=== PATIENT | female | born 1970 | race Caucasian/White ===

== ENCOUNTER 2016-05-25 09:40 | Day surgery (SDC) | payer OTHER ==
[2016-05-22 14:36] VITALS: BMI 30.2
[2016-05-25] MEDS ORDERED: LEVOFLOXACIN 500 MG IVPB 100 ML IVPB ONE (11:40)
[2016-05-25] MEDS ORDERED: KETOROLAC TROMETHAMINE 30 MG/1 ML VIAL ONE (11:59)
[2016-05-25] MEDS ORDERED: DEXAMETHASONE SOD PHOSPHATE 4 MG/1 ML VIAL ONE (11:59)
[2016-05-25] MEDS ORDERED: LEVOFLOXACIN 500 MG PREMIX BAG IVPB ONE (12:00)
[2016-05-25] MEDS ORDERED: MIDAZOLAM HCL 2 MG/2 ML SINGLE DOSE VIAL ONE ×2 (12:01)
[2016-05-25] MEDS ORDERED: ePHEDrine SULFATE 50 MG/1 ML AMPULE ONE (12:20)
--- NOTE | 2016-05-25 12:39 | OP ---
Operative Note - Note: Operative Date: 05/25/16 Pre-Operative Diagnosis: right renal stone Operation: right eswl Findings: 10 mm right upper pole stone Post-Operative Diagnosis: Same as Pre-op Surgeon: Magdiel Carson Anesthesia: General Operative Report Dictated: Yes
[2016-05-25] MEDS ORDERED: PROMETHAZINE HCL 25 MG/1 ML VIAL IVPUSH PRN (12:41)
[2016-05-25] MEDS ORDERED: oxyCODONE HCL 5 MG TABLET PO PRN (12:41)
[2016-05-25] MEDS ORDERED: ONDANSETRON 4 MG/2 ML VIAL IVPUSH PRN (12:41)
--- NOTE | 2016-05-25 13:48 | OP ---
DATE OF OPERATION: 05/25/2016 PREOPERATIVE DIAGNOSIS: Right renal stone. POSTOPERATIVE DIAGNOSIS: Right renal stone. PROCEDURE: Right extracorporeal shock-wave lithotripsy. ATTENDING: Jemma Mcfarland MD ANESTHESIA: General. OPERATION: The patient was brought in the operating room, placed in a supine position on the operating room table. Ultrasonography and fluoroscopy were performed. A 10-mm right upper pole stone was identified. This stone was seen on both fluoroscopy and ultrasonography. At this point general anesthesia was administered. Levaquin 500 mg was also given intravenously. Extracorporeal shock-wave lithotripsy was then performed, 3000 impulses at 18 joules of power was administered to the stone. No complications were noted. The patient tolerated the procedure very well. The disposition of the patient was to the recovery room. JEMMA MCFARLAND M.D. [id number]
[2016-05-25] MEDS ORDERED: ACETAMINOPHEN 325 MG TABLET (FP) ONE (14:05)
[2016-05-25 14:46] VITALS: TEMP 97.8
[2016-05-25 15:26] VITALS: BP 122/78; PULSE 78
== END 2016-05-25 15:27 | disposition home or self-care (01) ==
LOC: JASU-SURG 09:40
PROVIDERS: ATTEND Urology
PROC: 0TF3XZZ Fragmentation in Right Kidney Pelvis, External Approach (ICD-10-PCS; principal; 2016-05-25 11:00)
DX: N20.0 Calculus of kidney (principal)
CPT/HCPCS: 84703; 94760